=== PATIENT | female | born 1990 | race African-American/Black ===

== ENCOUNTER 2020-11-24 07:24 | Observation (INO) | payer BC ==
--- NOTE | 2020-11-23 23:17 | PCM.LDHP ---
L&D History of Present Illness - General Date of Service: 11/24/20 Admit Problem/Dx: Admission Diagnosis/Problem Admission Diagnosis/Problem 11/23/20 23:07 Ericka is a 30-year-old 2 para 0-0-1-0 -[place] female scheduled to be admitted on the a.m. of 11/24/2020 at 39-6/7 weeks gestational age with an OBED of 11/25/2020 for induction of labor. Source of Information: Patient History Limitations: Reports: No Limitations - History of Present Illness Introduction:: Ericka is a 30-year-old 2 para 0-0-1-0 -[place] female scheduled to be admitted on the a.m. of 11/24/2020 at 39-6/7 weeks gestational age with an OBED of 11/25/2020 for induction of labor. The process and procedure induction of labor, its risk, benefits and alternatives of care including allowing for natural onset of labor are all discussed with patient. She appears understand and wishes to proceed. Risk factors for include the following: History of multiple fibroids with last ultrasound done 11/22/2020 showing 3 largest fibroids at 7.5, 4.0 and 3.4 cm. At this time cervix is 2 cm dilated, 50% effaced, -3 station, soft, mid position. Baby in a cephalic presentation. 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 Her OBED of 11/26/2019 was determined by a certain last menstrual period started 02/19/2020. She is not using any control at the time of conception. LMP is relatively certain. She has cycles every 30 days. Menarche age 12. Patient has a previous miscarriage at 6weeks which occurred on 08/09/2014. She denies any STIs. She did have an abnormal Pap smear 2 years ago. She is presently sexually active course: Patient was first seen for this on 05/10/2020 at approximate 11 weeks gestational age. She has been seen on a very regular basis throughout the . Weight gain has been from 165 pounds to 270 pounds for a 42 pound increase. Her vital signs been stable and her fundal height growth has been appropriate or just a little ahead of average. Serial ultrasounds done and evaluation of growth have shown a normal rise in baby's growth with last ultrasound showing an estimated weight of 8 pounds 3 ounces (3717 g). Biophysical profiles done weekly have been within normal limits. Patient is group B strep negative. She declined genetic testing during this . She has a history of HPV on cervical evaluation. She plans to breast-feed. Patient is rubella immune. Tdap was given on 09/27/2020. Laboratory testing shows blood to be O+ with a negative antibody screen. Her first hemoglobin was 12.9 g/dL. Platelets were 332,000. She is rubella immune. RPR is nonreactive. Urine culture was negative. Hepatitis B surface antigen and HIV assays were negative. Chlamydia and gonorrhea assays both negative. Second trimester laboratory testing showed hemoglobin of 12.5 g/dL and platelets at 245,000. 1 hour GTT was normal at 104. Group B strep screen was negative. Allergies: None Medications: 1. vitamins 1 p.o. daily Past medical history: 1. Uterine fibroids 2. Miscarriage at 6 weeks gestational age. Past surgical history: Unremarkable Family history: Mother is alive but with hypertension. Twins are noted in her family. Father is alive with hypertension. Maternal grandmother is alive and healthy. Maternal grandfather is from causes unknown. Paternal grandfather is secondary to heart disease. Paternal grandmother is alive but cannot see very well. 2 brothers are healthy. Aunts, uncles and cousins are generally healthy. No anesthesia, bleeding, blood clotting problems or related concerns noted in the family. Social history: Patient is single. Significant other is Kaushik. 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 She does not use any significant muscle alcohol, drugs or tobacco. Review of systems: In general patient has no complaints. She does report occ asional contractions, is uncomfortable with but does report good activity. Skin: Negative Lungs: No infectious symptoms or shortness of breath Cardiovascular: No chest pain or exercise intolerance Breasts: No lumps, changes in size, pain, dimpling, discharge or axillary or supraclavicular concerns. Changes associated . Patient plans to breast-feed. GI: Negative : Body habitus changes associated with . Musculoskeletal: Negative Neurological: Negative In general the patient is well-developed, well-nourished, pleasant female of stated age in no acute distress. On last evaluation clinic blood pressure is 105/60. Weight was 207.2 pounds. Pregravid weight was 165 pounds. Height is 5 feet 3 inches. Prepregnancy body mass index was 30.8. Skin is warm dry without lesions. HEENT, neck and back within normal limits. Lungs are clear with good breath sounds in all lung leos. Cardiovascular exam shows regular and rhythm without murmurs. Breast exam done at time of first visit was unremarkable. Nipples bilaterally are everted. Patient plans to breast-feed. Abdomen is gravid with last fundal height at 40 cm. Baby in vertex pre sentation. Genital shows cervical dilated as outlined above at tight 2 cm, 50% effaced, -3 station, soft, cephalic presentation, mid position. Extremities and neurological exam are grossly within normal limits. Mild edema noted. H&P Review of Systems - Review of Systems: Review Of Systems: See Below L&D Exam - Exam Exam: See Below - Problem List (1) Uterine fibroids affecting SNOMED Code(s): 92264165 ICD Code: O34.10 - MATERNAL CARE FOR BENIGN TUMOR OF CORPUS UTERI, UNSP TRI; D25.9 - LEIOMYOMA OF UTERUS, UNSPECIFIED Status: Acute (2) 39 weeks gestation of SNOMED Code(s): 61187440 ICD Code: Z3A.39 - 39 WEEKS GESTATION OF Status: Acute (3) History of miscarriage SNOMED Code(s): 296328940 ICD Code: Z87.59 - PERSONAL HISTORY OF COMP OF PREG, CHLDBRTH AND THE PUERP Status: Acute Problem List Initiated/Reviewed/Updated: Yes Assessment/Plan Comment:: 1. Ericka is a 30-year-old 2 para 0-0-1-0 -[place] female scheduled to be admitted on the a.m. of 11/24/2020 at 39-6/7 weeks gestational age with an OBED of 11/25/2020 for induction of labor. 2. Risk factors include history of multiple fibroids as described 3. Patient desires to breast-feed. 4. Patient is open to epidural in labor but would like to start out with attempt at natural delivery 5. History of abnormal Pap smear related to HPV infection 6. Patient is rubella immune. 7. Patient received her Tdap during in September 2020. 8. Patient declined genetic testing 9. Patient is group B strep negative Plan: 1. Patient is to be admitted under Dr. Alva on 11/24/2020 for induction of labor. The type of induction to be determined by Dr. Dubois. Cervix appears to be compatible with possible Pitocin induction with eventual AROM augmentation. The procedure of induction of labor is discussed in detail with the patient. Risk of labor abnormalities which could be associated with uterine fibroids also discussed in detail. Patient appears to understand and is wishing to proceed with induction 2. Group B strep negativepatient does not need antibiotic prophylaxis at this time 3. Support breast-feeding incision 4. Epidural per patient desire 5. Admission labs consist of COVID-19, CBC, RPR per unit protocol.
[2020-11-24] MEDS ORDERED: Sodium Chloride 0.9% 10 ML Syringe FLUSH PRN (07:43)
[2020-11-24] MEDS ORDERED: Nalbuphine 10 MG/1 ML Vial IVPUSH PRN (07:43)
[2020-11-24] MEDS ORDERED: Oxytocin/Lactated Ringers 10 UNIT/1,000 ML BAG IV SCH (07:45)
[2020-11-24] MEDS ORDERED: Misoprostol 25 MCG (1/4 of 100 MCG) Tab VAG ONE (08:30)
[2020-11-24] MEDS: Lactated Ringers 1,000 ML IV SCH ×2 (10:00→14:00)
--- NOTE | 2020-11-24 19:53 | PCM.SN.2 ---
- Free Text/Narrative Note: 0745 Patient here for induction. Cervix 05/27/-4 Cytotec placed. FHT reassuring.
--- NOTE | 2020-11-24 19:54 | PCM.SN.2 ---
- Free Text/Narrative Note: 1030 Patient feeling cramping. Discussed plan of care. Likely initiate pitocin at 11 am. Contractions getting more uncomfortable.
--- NOTE | 2020-11-24 19:58 | PCM.SN.2 ---
- Free Text/Narrative Note: 1315 Two deep variable decelerations. Cervix unchanged. Patient feeling "mild cramps" Recommend AROM. Patient declines as she states she would like to consider discharge home and understands cannot if rupture of membranes. Asked patient if this is something that had been discussed with her as an option but she just does hope to have it as an option and to have option of having Dr Santana for delivery if things aren't progressing well now. Reinforced overall heart tones have been reassuring and too early to give up if not change but station is high. Will continue pitocin.
--- NOTE | 2020-11-24 20:02 | PCM.PNLD ---
Labor Progress Note - VS & Meds Vital Signs: Last Vital Signs Temp 36.7 C 11/24/20 07:43 Pulse 52 L 11/24/20 07:43 Resp 16 11/24/20 07:43 BP 117/65 11/24/20 07:43 Pulse Ox Active Medications: Current Medications Oxytocin/Lactated Ringer's (Pitocin In Lr 10 Units/1,000 Ml) 10 unit in 1,000 mls @ 12 mls/hr IV TITRATE RONALD; Protocol Last Titration: 11/24/20 18:20 Dose: 10 munits/min, 60 mls/hr Documented by: Lactated Ringer's (Ringers, Lactated) 1,000 mls @ 100 mls/hr IV ASDIRECTED RONALD Last Admin: 11/24/20 14:00 Dose: 100 mls/hr Documented by: Nalbuphine HCl (Nalbuphine 10 Mg/1 Ml Vial) 10 mg IVPUSH Q2H PRN PRN Reason: Pain Sodium Chloride (Sodium Chloride 0.9% 10 Ml Syringe) 10 ml FLUSH ASDIRECTED PRN PRN Reason: Keep Vein Open Discontinued Medications Misoprostol (Misoprostol 25 Mcg (1/4 Of 100 Mcg) Tab) 50 mcg VAG ONETIME ONE Stop: 11/24/20 08:31 Last Admin: 11/24/20 08:35 Dose: 50 mcg Documented by: - Uterine Contractions Uterine Monitoring Mode: External [place] Contraction Intensity: Moderate Uterine Resting Tone: Soft - Monitoring Heart Rate (FHR) Baseline: 145 Heart Rate (FHR) Variability: Moderate (6-25 bpm) Accelerations: Present, 15x15 Decelerations: Late (occasional subtle lates) - Vaginal Exam Dilation (cm): 2 Effacement (Percent): 20 Station: -3 Cervical Position: Midposition - Labor Progress (Free Text) Labor Progress: No significant progress. Some late decelerations. Discussed with patient that while seeing these at 2 cm with low dose (4) of pitocin I do have concerns that we will not be able to get contractions strong enough to achieve vaginal delivery given that although FHT are overall reassuring there are some lates this early in the labor course. Recommend AROM to help facilitate labor. Patient and again refuse. Would like to watch further. Discussed situations that would necessitate more emergent . They stress they do not want a unless it would be "last resort life or " Would like to continue to labor.
--- NOTE | 2020-11-24 20:10 | PCM.SN.2 ---
- Free Text/Narrative Note: 2100 Overall reassuring heart tones. No cervical change 10 mu/min pitocin. Regular painful contractions. Offered AROM. Discussed given minimal change with contractions and station significantly high feel AROM would help head become more applied and increase likelihood of delivery. Patient again declines. They have more questions about discharge and think they would prefer to let her body labor on it's own. And would like to have pitocin turned off and be discharged. They are very fearful of and it seems feel that induction will increase the likelihood. I discussed again that contractions whether from pitocin or natural have same impact on heart rate. FHT are reassuring and there have been accelerations so we do have a reassuring contraction stress test. Discussed that I don't think a day or two will make a difference on her likelihood of vaginal delivery. they asked that we leave the room and upon our return they would like pitocin off and discharge home. Strong return precautions reinforced. Discussed that there have been periods of time the monitoring makes me concerned and I would strongly prefer they continue induction now rather than go home. They voice understanding but would still like discharge.
== END 2020-11-24 21:40 | disposition home or self-care (01) ==
LOC: JD.OB 07:24
PROVIDERS: ADMIT Obstetrics & Gynecology; ATTEND Obstetrics & Gynecology
DX: O80 Encounter for full-term uncomplicated delivery (principal); O34.13 Maternal care for benign tumor of corpus uteri, third trimester; Z3A.39 39 weeks gestation of pregnancy; Z20.822 Contact with and (suspected) exposure to COVID-19; Z87.59 Personal history of other complications of pregnancy, childbirth and the puerperium
CPT/HCPCS: 36415; 59025; 85025; 86592; 86850; 86900; 86901; 87635; 96365; 96366; A9270; G0378; J2590; J7120; U0002

== ENCOUNTER 2020-11-25 11:28 | Inpatient (IN) | payer BC ==
[2020-11-25] MEDS ORDERED: Sodium Chloride 0.9% 10 ML Syringe FLUSH PRN (12:29)
[2020-11-25] MEDS ORDERED: Ondansetron 4 MG/2 ML SDV IVPUSH PRN (12:29)
[2020-11-25] MEDS ORDERED: Nalbuphine 10 MG/1 ML Vial IVPUSH PRN (12:29)
[2020-11-25] MEDS ORDERED: Oxytocin/Lactated Ringers 10 UNIT/1,000 ML BAG IV SCH ×2 (12:30)
[2020-11-25] MEDS ORDERED: Bupivacaine 0.25% 10 ML SDV ONE (14:00)
[2020-11-25] MEDS: Lactated Ringers 1,000 ML IV SCH ×4 (15:00→22:20)
--- NOTE | 2020-11-25 15:00 | PCM.SN.2 ---
- Free Text/Narrative Note: 1430 in room for IV start. One attempt per ultrasound 20 ga. good flush good blood return. Left upper arm. Out of room at 1450.
--- NOTE | 2020-11-25 19:47 | PCM.PNLD ---
Labor Progress Note - VS & Meds Vital Signs: Last Vital Signs Temp 36.8 C 11/25/20 12:29 Pulse 92 11/25/20 12:29 Resp BP 131/78 11/25/20 12:29 Pulse Ox 99 11/25/20 12:29 Active Medications: Current Medications Oxytocin/Lactated Ringer's (Pitocin In Lr 10 Units/1,000 Ml) 10 unit in 1,000 mls @ 12 mls/hr IV TITRATE RONALD; Protocol Last Admin: 11/25/20 18:20 Dose: 2 munits/min, 12 mls/hr Documented by: Oxytocin/Lactated Ringer's (Pitocin In Lr 10 Units/1,000 Ml) 10 unit in 1,000 mls @ 500 mls/hr IV .CONTINUOUS RONALD Lactated Ringer's (Ringers, Lactated) 1,000 mls @ 100 mls/hr IV ASDIRECTED RONALD Last Admin: 11/25/20 18:12 Dose: 100 mls/hr Documented by: Nalbuphine HCl (Nalbuphine 10 Mg/1 Ml Vial) 10 mg IVPUSH Q2H PRN PRN Reason: Pain Ondansetron HCl (Ondansetron 4 Mg/2 Ml Sdv) 4 mg IVPUSH Q4H PRN PRN Reason: Nausea/Vomiting Sodium Chloride (Sodium Chloride 0.9% 10 Ml Syringe) 10 ml FLUSH ASDIRECTED PRN PRN Reason: Keep Vein Open - Uterine Contractions Contraction Intensity: Moderate to Strong - Monitoring Heart Rate (FHR) Variability: Moderate (6-25 bpm) Accelerations: Present, 15x15 Decelerations: None Strip Review: Category I - Vaginal Exam Dilation (cm): 4 Effacement (Percent): 80 Station: -2 Cervical Position: Midposition - Labor Progress (Free Text) Labor Progress: In tub. Doing well. Desires epidural "soon" Otherwise no complaints. Continued leaking of fluid. On 2 mu/min of pitocin now.
[2020-11-25] MEDS ORDERED: Bupivacaine/fentaNYL/NS 100 ML Bag EPIDUR PRN (20:42)
[2020-11-25] MEDS ORDERED: ePHEDrine 50 MG/ML SDV IVPUSH PRN (20:42)
[2020-11-25] MEDS ORDERED: fentaNYL 100 MCG/2 ML SDV EPIDUR PRN (20:42)
[2020-11-25] MEDS ORDERED: diphenhydrAMINE 50 MG/ML SDV IVPUSH PRN (20:42)
--- NOTE | 2020-11-25 21:12 | PCM.PREANE ---
Preanesthetic Assessment - Procedure Proposed Procedure: epidural - Anesthesia/Transfusion/Family Hx Anesthesia History: No Prior Anesthesia Family History of Anesthesia Reaction: No Transfusion History: No Prior Transfusion(s) - Review of Systems General: Fatigue, Malaise Pulmonary: No Symptoms Cardiovascular: No Symptoms Gastrointestinal: Abdominal Pain (labor) Neurological: No Symptoms Other: Reports: None - Physical Assessment Vital Signs: Last Vital Signs Temp 36.8 C 11/25/20 12:29 Pulse 92 11/25/20 12:29 Resp BP 131/78 11/25/20 12:29 Pulse Ox 99 11/25/20 12:29 Height: 1.63 m Weight: 93.894 kg ASA Class: 2 Mental Status: Alert & Oriented x3 Airway Class: Mallampati = 2 Dentition: Reports: Normal Dentition Thyro-Mental Finger Breadths: 3 Mouth Opening Finger Breadths: 3 ROM/Head Extension: Full Lungs: Clear to Auscultation, Normal Respiratory Effort Cardiovascular: Regular Rate, Regular Rhythm - Allergies Allergies/Adverse Reactions: Allergies Allergy/AdvReac Type Severity Reaction Status Date / Time No Known Allergies Allergy Verified 11/24/20 07:41 - Anesthesia Plan Pre-Op Medication Ordered: None - Acknowledgements Anesthesia Type Planned: Epidural Pt an Appropriate Candidate for the Planned Anesthesia: Yes Alternatives and Risks of Anesthesia Discussed w Pt/Guardian: Yes Pt/Guardian Understands and Agrees with Anesthesia Plan: Yes PreAnesthesia Questionnaire Gastrointestinal History: Reports: GERD 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, - Infectious Disease History Infectious Disease History: Reports: Human Papilloma Virus (HPV) - Past Surgical History Female Surgical History: Reports: None - SUBSTANCE USE Tobacco Use Status *Q: Never Tobacco User Second Hand Smoke Exposure: No Recreational Drug Use History: No - HOME MEDS Home Medications: Home Meds Vits #93/Iron Fum/FA [ Formula Tablet] 1 tab PO DAILY 11/24/20 [History] - CURRENT (IN HOUSE) MEDS Current Meds: Current Medications Diphenhydramine HCl (Diphenhydramine 50 Mg/Ml Sdv) 25 mg IVPUSH Q6H PRN PRN Reason: pruritis Ephedrine Sulfate (Ephedrine 50 Mg/Ml Sdv) 5 mg IVPUSH ASDIRECTED PRN PRN Reason: Hypotension Fentanyl (Fentanyl 100 Mcg/2 Ml Sdv) 100 mcg EPIDUR Q3H PRN PRN Reason: Pain Last Admin: 11/25/20 20:49 Dose: 100 mcg Documented by: Fentanyl/Bupivacaine HCl (Bupivacaine/Fentanyl/Ns 100 Ml Bag) 100 ml EPIDUR ASDIRECTED PRN PRN Reason: Pain Last Admin: 11/25/20 20:51 Dose: 100 ml Documented by: Oxytocin/Lactated Ringer's (Pitocin In Lr 10 Units/1,000 Ml) 10 unit in 1,000 mls @ 12 mls/hr IV TITRATE RONALD; Protocol Last Titration: 11/25/20 20:35 Dose: 0 munits/min, 0 mls/hr Documented by: Oxytocin/Lactated Ringer's (Pitocin In Lr 10 Units/1,000 Ml) 10 unit in 1,000 mls @ 500 mls/hr IV .CONTINUOUS RONALD Lactated Ringer's (Ringers, Lactated) 1,000 mls @ 100 mls/hr IV ASDIRECTED RONALD Last Admin: 11/25/20 18:12 Dose: 100 mls/hr Documented by: Nalbuphine HCl (Nalbuphine 10 Mg/1 Ml Vial) 10 mg IVPUSH Q2H PRN PRN Reason: Pain Ondansetron HCl (Ondansetron 4 Mg/2 Ml Sdv) 4 mg IVPUSH Q4H PRN PRN Reason: Nausea/Vomiting Sodium Chloride (Sodium Chloride 0.9% 10 Ml Syringe) 10 ml FLUSH ASDIRECTED PRN PRN Reason: Keep Vein Open
[2020-11-25] MEDS ORDERED: Citric Acid/Sodium Citrate Solution 30 ML Cup PO ONE (22:30)
[2020-11-25] MEDS ORDERED: Metoclopramide 10 MG/2 ML SDV IVPUSH ONE (22:30)
--- NOTE | 2020-11-25 22:32 | PCM.PNLD ---
Labor Progress Note - VS & Meds Vital Signs: Last Vital Signs Temp 36.8 C 11/25/20 12:29 Pulse 92 11/25/20 12:29 Resp BP 131/78 11/25/20 12:29 Pulse Ox 99 11/25/20 12:29 Active Medications: Current Medications Diphenhydramine HCl (Diphenhydramine 50 Mg/Ml Sdv) 25 mg IVPUSH Q6H PRN PRN Reason: pruritis Ephedrine Sulfate (Ephedrine 50 Mg/Ml Sdv) 5 mg IVPUSH ASDIRECTED PRN PRN Reason: Hypotension Last Admin: 11/25/20 21:27 Dose: 5 mg Documented by: Fentanyl (Fentanyl 100 Mcg/2 Ml Sdv) 100 mcg EPIDUR Q3H PRN PRN Reason: Pain Last Admin: 11/25/20 20:49 Dose: 100 mcg Documented by: Fentanyl/Bupivacaine HCl (Bupivacaine/Fentanyl/Ns 100 Ml Bag) 100 ml EPIDUR ASDIRECTED PRN PRN Reason: Pain Last Admin: 11/25/20 20:51 Dose: 100 ml Documented by: Oxytocin/Lactated Ringer's (Pitocin In Lr 10 Units/1,000 Ml) 10 unit in 1,000 mls @ 12 mls/hr IV TITRATE RONALD; Protocol Last Titration: 11/25/20 20:35 Dose: 0 munits/min, 0 mls/hr Documented by: Oxytocin/Lactated Ringer's (Pitocin In Lr 10 Units/1,000 Ml) 10 unit in 1,000 mls @ 500 mls/hr IV .CONTINUOUS RONALD Lactated Ringer's (Ringers, Lactated) 1,000 mls @ 100 mls/hr IV ASDIRECTED RONALD Last Infusion: 11/25/20 20:27 Dose: 999 mls/hr Documented by: Nalbuphine HCl (Nalbuphine 10 Mg/1 Ml Vial) 10 mg IVPUSH Q2H PRN PRN Reason: Pain Ondansetron HCl (Ondansetron 4 Mg/2 Ml Sdv) 4 mg IVPUSH Q4H PRN PRN Reason: Nausea/Vomiting Sodium Chloride (Sodium Chloride 0.9% 10 Ml Syringe) 10 ml FLUSH ASDIRECTED PRN PRN Reason: Keep Vein Open - Uterine Contractions Contraction Intensity: Moderate to Strong - Monitoring Heart Rate (FHR) Variability: Moderate (6-25 bpm) Accelerations: Present, 15x15 Decelerations: Late, Variable Strip Review: Category II - Vaginal Exam Dilation (cm): 4 Effacement (Percent): 80 Station: -3 Cervical Position: Midposition - Labor Progress (Free Text) Labor Progress: Post epidural significant late and deep variable decelerations. Reassuring with pitocin off and without contractions. Discussed with patient and that given she is only 4 cm and there are significant decelerations with contractions that I would recommend as the monitoring is not reassuring when she has contractions and contractions are necessary to achieve vaginal delivery. She voices that she understands this. States she would just like the pitocin off and to wait and see if she can still deliver. Again stressed that delivery is not possible without contractions and with contractions there heart rate patterns that are non-reassuring. They voice understanding and would like pitocin off to discuss. After discussion they would proceed with section. Risks, benefits and alternatives discussed and she voices understanding and wishes to proceed.
[2020-11-25] MEDS ORDERED: Metoclopramide 10 MG/2 ML SDV ONE (22:36)
[2020-11-25] MEDS ORDERED: Citric Acid/Sodium Citrate Solution 30 ML Cup ONE (22:36)
--- NOTE | 2020-11-25 22:38 | PCM.LDHP ---
L&D History of Present Illness - General Date of Service: 11/25/20 Admit Problem/Dx: Patient Status Order with Admit Dx/Problem 11/25/20 12:29 Patient Status [ADT] Routine Admission Diagnosis/Problem Admission Diagnosis/Problem - History of Present Illness Introduction:: 30 year old at 40w here for SROM. Clear fluid at 5 am. Had been admitted for induction yesterday and after minimal change from 7 am to 7 pm desired discharge to home. Irregular contractions over night and SROM. PNC with Dr. Santana as detailed in H&P yesterday as well. 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, - Infectious Disease History Infectious Disease History: Reports: Human Papilloma Virus (HPV) - Past Surgical History Female Surgical History: Reports: None Social & Family History - Family History Family Medical History: No Pertinent Family History - Tobacco Use Tobacco Use Status *Q: Never Tobacco User Second Hand Smoke Exposure: No - Recreational Drug Use Recreational Drug Use: No Drug Use in Last 12 Months: No H&P Review of Systems - Review of Systems: Review Of Systems: See Below General: Reports: No Symptoms HEENT: Reports: No Symptoms Pulmonary: Reports: No Symptoms Cardiovascular: Reports: No Symptoms Gastrointestinal: Reports: No Symptoms Genitourinary: Reports: No Symptoms Musculoskeletal: Reports: No Symptoms Skin: Reports: No Symptoms Psychiatric: Reports: No Symptoms Neurological: Reports: No Symptoms Hematologic/Lymphatic: Reports: No Symptoms Immunologic: Reports: No Symptoms L&D Exam - Exam Exam: See Below - Vital Signs Vital Signs: Last Vital Signs Temp 36.8 C 11/25/20 12:29 Pulse 92 11/25/20 12:29 Resp BP 131/78 11/25/20 12:29 Pulse Ox 99 11/25/20 12:29 Weight: 93.894 kg - OB Specific Contraction Intensity: Moderate to Strong Heart Rate (FHR) Variability: Moderate (6-25 bpm) - Cardoso Score Cardoso Score Cervix Position: Posterior Cardoso Score Consistency: Firm Cardoso Score Effacement: 31-50% Cardoso Score Dilation: 1-2 cm Cardoso Score Infant's Station: -3 Cardoso Score Total: 2 - Exam General: Alert, Oriented HEENT: PERRLA, Conjunctiva Clear, EACs Clear, EOMI, Hearing Intact, Mucosa Moist & [place], Nares Patent, Normal Nasal Septum, Posterior Pharynx Clear, TMs Clear Neck: Supple, Trachea Midline GI/Abdominal Exam: Normal Bowel Sounds, Soft, Non-Tender, No Organomegaly, No Distention, No Abnormal Bruit, No Mass, Pelvis Stable Rectal Exam: Normal Exam, Normal Rectal Tone Genitourinary: Normal external exam Back Exam: Normal Inspection, Full Range of Motion Extremities: Normal Inspection, Normal Range of Motion, Non-Tender, No Pedal Edema, Normal Capillary Refill Skin: Warm, Dry, Intact Neurological: Cranial Nerves Intact, Reflexes Equal Bilateral Psychiatric: Alert, Normal Affect, Normal Mood Problem List Initiated/Reviewed/Updated: Yes Orders Last 24hrs: Active Orders 24 hr Category Date Time Status Patient Status [ADT] Routine ADT 11/25/20 12:29 Active Activity as Tolerated [RC] PFP Care 11/25/20 12:29 Active Communication Order [RC] ASDIRECTED Care 11/25/20 12:29 Active Communication Order [RC] ASDIRECTED Care 11/25/20 20:43 Active Cooling Warming Measures [RC] ASDIRECTED Care 11/25/20 20:43 Active Notify Provider [RC] ASDIRECTED Care 11/25/20 20:42 Active Notify Provider [RC] ASDIRECTED Care 11/25/20 20:43 Active Notify Provider [RC] PFP Care 11/25/20 12:29 Active Notify Provider [RC] PRN Care 11/25/20 12:29 Active Oxygen Therapy [RC] ASDIRECTED Care 11/25/20 20:42 Active Peripheral IV Care [RC] . DIRECTED Care 11/25/20 12:29 Active Pulse Oximetry [RC] ASDIRECTED Care 11/25/20 20:43 Active Vital Signs [RC] PER UNIT ROUTINE Care 11/25/20 12:29 Active Vital Signs [RC] Q1H Care 11/25/20 20:42 Active Regular Diet [DIET] Diet 11/25/20 Lunch Active HEP C VIRUS AB [REF] Stat Lab 11/25/20 12:39 Received Bupivacaine/fentaNYL/NS [fentaNYL/Bupivacaine/NS 2 MCG- Med 11/25/20 20:42 Active 0.125% 100 ML] 100 ml EPIDUR ASDIRECTED PRN Lactated Ringers [Ringers, Lactated] 1,000 ml Med 11/25/20 12:30 Active IV ASDIRECTED Nalbuphine [Nubain] Med 11/25/20 12:29 Active 10 mg IVPUSH Q2H PRN Ondansetron [Zofran] Med 11/25/20 12:29 Active 4 mg IVPUSH Q4H PRN Oxytocin/Lactated Ringers [Pitocin in LR 10 Units/1,000 Med 11/25/20 12:30 Active ML] 10 unit in 1,000 ml IV .CONTINUOUS Oxytocin/Lactated Ringers [Pitocin in LR 10 Units/1,000 Med 11/25/20 12:30 Active ML] 10 unit in 1,000 ml IV TITRATE Sodium Chloride 0.9% [Saline Flush] Med 11/25/20 12:29 Active 10 ml FLUSH ASDIRECTED PRN diphenhydrAMINE [Benadryl] Med 11/25/20 20:42 Active 25 mg IVPUSH Q6H PRN ePHEDrine [ePHEDrine sulfate] Med 11/25/20 20:42 Active 5 mg IVPUSH ASDIRECTED PRN fentaNYL [Sublimaze] Med 11/25/20 20:42 Active 100 mcg EPIDUR Q3H PRN Electronic Heart Tones Ext w TOCO [WOMSER] Oth 11/25/20 12:29 Ordered Routine Electronic Heart Tones Internal [WOMSER] Per Unit Oth 11/25/20 12:29 Ordered Routine Peripheral IV Insertion Adult [OM.PC] Routine Oth 11/25/20 12:29 Ordered Resuscitation Status Routine Resus Stat 11/25/20 12:29 Ordered Medication Orders Diphenhydramine HCl (Diphenhydramine 50 Mg/Ml Sdv) 25 mg IVPUSH Q6H PRN PRN Reason: pruritis Ephedrine Sulfate (Ephedrine 50 Mg/Ml Sdv) 5 mg IVPUSH ASDIRECTED PRN PRN Reason: Hypotension Last Admin: 11/25/20 21:27 Dose: 5 mg Documented by: KIRT Fentanyl (Fentanyl 100 Mcg/2 Ml Sdv) 100 mcg EPIDUR Q3H PRN PRN Reason: Pain Last Admin: 11/25/20 20:49 Dose: 100 mcg Documented by: KIRT Fentanyl/Bupivacaine HCl (Bupivacaine/Fentanyl/Ns 100 Ml Bag) 100 ml EPIDUR ASDIRECTED PRN PRN Reason: Pain Last Admin: 11/25/20 20:51 Dose: 100 ml Documented by: KIRT Oxytocin/Lactated Ringer's (Pitocin In Lr 10 Units/1,000 Ml) 10 unit in 1,000 mls @ 12 mls/hr IV TITRATE RONALD; Protocol Last Titration: 11/25/20 20:35 Dose: 0 munits/min, 0 mls/hr Documented by: Admin: 11/25/20 18:20 Dose: 2 munits/min, 12 mls/hr Documented by: PENG Oxytocin/Lactated Ringer's (Pitocin In Lr 10 Units/1,000 Ml) 10 unit in 1,000 mls @ 500 mls/hr IV .CONTINUOUS RONALD Lactated Ringer's (Ringers, Lactated) 1,000 mls @ 100 mls/hr IV ASDIRECTED RONALD Last Infusion: 11/25/20 20:27 Dose: 999 mls/hr Documented by: Admin: 11/25/20 18:12 Dose: 100 mls/hr Documented by: Infusion: 11/25/20 18:12 Dose: 100 mls/hr Documented by: Admin: 11/25/20 15:00 Dose: 100 mls/hr Documented by: PENG Nalbuphine HCl (Nalbuphine 10 Mg/1 Ml Vial) 10 mg IVPUSH Q2H PRN PRN Reason: Pain Ondansetron HCl (Ondansetron 4 Mg/2 Ml Sdv) 4 mg IVPUSH Q4H PRN PRN Reason: Nausea/Vomiting Sodium Chloride (Sodium Chloride 0.9% 10 Ml Syringe) 10 ml FLUSH ASDIRECTED PRN PRN Reason: Keep Vein Open Assessment/Plan Comment:: 30 year old here with SROM. Discussed if no cervical change after 2-3 hours would again recommend pitocin. Patient voices understanding.
[2020-11-25] MEDS ORDERED: Morphine PF 10 MG/10 ML SDV ONE (22:47)
[2020-11-25] MEDS ORDERED: ceFAZolin 1 GM Vial ONE (22:47)
[2020-11-25] MEDS ORDERED: Phenylephrine 1% 10 MG/ML SDV ONE (22:47)
[2020-11-25] MEDS ORDERED: Bupivacaine 0.5% 30 ML SDV ONE (22:50)
[2020-11-25] MEDS ORDERED: Lidocaine 2% with EPINEPHrine 1:200,000 20 ML SDV ONE (22:50)
[2020-11-25] MEDS ORDERED: Ketorolac 30 MG/ML SDV ONE (23:33)
--- NOTE | 2020-11-26 00:09 | PCM.POSTAN ---
POST ANESTHESIA ASSESSMENT - MENTAL STATUS Mental Status: Alert, Oriented - VITAL SIGNS Vital Signs: Last Vital Signs Temp 36.8 C 11/25/20 12:29 Pulse 92 11/25/20 12:29 Resp BP 131/78 11/25/20 12:29 Pulse Ox 99 11/25/20 12:29 - RESPIRATORY Respiratory Status: Respiratory Rate WNL, Airway Patent, O2 Saturation Stable - CARDIOVASCULAR CV Status: Pulse Rate WNL, Blood Pressure Stable - GASTROINTESTINAL GI Status: No Symptoms - PAIN Pain Score: 0 - POST OP HYDRATION Hydration Status: Adequate & Stable - OBSERVATIONS Free Text/Narrative:: no anesthesia complications noted
--- NOTE | 2020-11-26 00:16 | PCM.OPNOTE ---
- General Post-Op/Procedure Note Date of Surgery/Procedure: 11/26/20 Operative Procedure(s): primary Findings: viable female, weight 3560g, 8/9 apgars at 2324. Pre Op Diagnosis: non reassuring heart tones. Post-Op Diagnosis: Same Anesthesia Technique: Spinal Primary Surgeon: Hanna Alva Anesthesia Provider: Armond Koch Administrative Secretary: Renea Massey Fluid Replacement, Intraop: 1,500 Output, Urine Amount: 100 EBL in mLs: 1,000 Complications: None Condition: Good Free Text/Narrative:: he patient was taken to the operating room where epidural anesthesia was dosed to surgical levels without difficulty. The patient was prepped and draped in the usual sterile fashion in the dorsal supine position with a leftward tilt. A Pfannenstiel skin incision was made with the scalpel and carried through to the underlying layer of fascia. The fascia was incised in the midline and extended laterally using Nguyen scissors. Dylan clamps were used to elevate the superior aspect of the fascial incision, which was elevated, and the underlying rectus muscles were dissected off bluntly and using Nguyen scissors. Attention was then turned to the inferior aspect of the fascial incision, which in similar fashion was grasped with Dylan clamps, elevated, and the underlying rectus muscles were dissected off bluntly and using the nguyen. The rectus muscles were dissected in the midline. The peritoneum was entered bluntly; this incision was extended superiorly and inferiorly with good visualization of the bladder. The bladder blade was inserted. The vesicouterine peritoneum was identified and entered sharply using Metzenbaum scissors. This incision was extended laterally and the bladder flap was created digitally. The bladder blade was reinserted. The lower uterine segment was incised in a transverse fashion using the scalpel and with digital traction. Clear fluid was noted. The was subsequently delivered by flexing the head to the incision. Body and shoulders followed without difficulty. The cord was clamped and cut. The infant was subsequently handed to the awaiting metal cleaner whose presence had been requested.. The placenta was delivered spontaneously intact with a three-vessel cord noted. The uterus was exteriorized and cleared of all clots and debris. The uterine incision was repaired in 2 layers using 0 monocryl. Hemostasis was visualized. Hemostasis was visualized bilaterally. The uterus was returned to the abdomen. The uterine incision was reexamined and it was noted to be hemostatic. The pelvis was copiously irrigated. The fascia was closed with 1 PDS suture, and the skin was closed with 3-0 monocryl. Sponge, lap, and instrument counts were correct x2. The patient was stable at the completion of the procedure and was subsequently transferred to the recovery room in stable condition.
[2020-11-26] MEDS ORDERED: Ibuprofen 600 MG Tab PO PRN (00:32)
[2020-11-26] MEDS ORDERED: Dextrose 5%-Lactated Ringers 1,000 ML IV SCH (00:32)
[2020-11-26] MEDS ORDERED: diphenhydrAMINE 50 MG/ML SDV IVPUSH PRN (00:32)
[2020-11-26] MEDS ORDERED: ePHEDrine 50 MG/ML SDV IVPUSH PRN (00:32)
[2020-11-26] MEDS ORDERED: Acetaminophen/oxyCODONE 325-5 MG Tab PO PRN ×2 (00:32)
[2020-11-26] MEDS ORDERED: Naloxone 0.4 MG/ML SDV IVPUSH PRN (00:32)
[2020-11-26] MEDS: Ketorolac 30 MG/ML SDV IVPUSH PRN ×3 (07:11→19:05)
--- NOTE | 2020-11-26 08:55 | PCM.PNPP ---
- General Info Date of Service: 11/26/20 Functional Status: Reports: Pain Controlled - Review of Systems General: Reports: No Symptoms HEENT: Reports: No Symptoms Pulmonary: Reports: No Symptoms Cardiovascular: Reports: No Symptoms Gastrointestinal: Reports: No Symptoms Genitourinary: Reports: No Symptoms Musculoskeletal: Reports: No Symptoms Skin: Reports: No Symptoms Neurological: Reports: No Symptoms Psychiatric: Reports: No Symptoms - Patient Data Vital Signs - Most Recent: Last Vital Signs Temp 36.7 C 11/26/20 07:26 Pulse 88 11/26/20 07:26 Resp 14 11/26/20 07:26 BP 114/95 H 11/26/20 07:26 Pulse Ox 100 11/26/20 07:26 Weight - Most Recent: 93.894 kg I&O - Last 24 Hours: Intake & Output 11/25/20 11/26/20 11/26/20 22:59 06:59 14:59 Intake Total 27 5400 1000 Output Total 3150 300 Balance 27 2250 700 Lab Results - Last 24 Hours: Laboratory Results - last 24 hr 11/26/20 Range/Units 07:20 WBC 14.52 H (3.98-10.04) K/mm3 RBC 3.40 L (3.98-5.22) M/mm3 Hgb 10.8 L D (11.2-15.7) gm/dl Hct 32.1 L (34.1-44.9) % MCV 94.4 (79.4-94.8) fl MCH 31.8 (25.6-32.2) pg MCHC 33.6 (32.2-35.5) g/dl RDW Std Deviation 44.5 (36.4-46.3) fL Plt Count 218 (182-369) K/mm3 MPV 10.2 (9.4-12.3) fl Neut % (Auto) 76.4 H (34.0-71.1) % Lymph % (Auto) 15.9 L (19.3-51.7) % [place] % (Auto) 7.2 (4.7-12.5) % Eos % (Auto) 0.2 L (0.7-5.8) Baso % (Auto) 0.1 (0.1-1.2) % Neut # (Auto) 11.09 H (1.56-6.13) K/mm3 Lymph # (Auto) 2.31 (1.18-3.74) K/mm3 [place] # (Auto) 1.05 H (0.24-0.36) K/mm3 Eos # (Auto) 0.03 L (0.04-0.36) K/mm3 Baso # (Auto) 0.01 (0.01-0.08) K/mm3 Med Orders - Current: Current Medications Diphenhydramine HCl (Diphenhydramine 50 Mg/Ml Sdv) 25 mg IVPUSH Q6H PRN PRN Reason: Itching or Nausea Ephedrine Sulfate (Ephedrine 50 Mg/Ml Sdv) 5 mg IVPUSH SEECOMMENT PRN PRN Reason: Other Ibuprofen (Ibuprofen 600 Mg Tab) 600 mg PO Q6H PRN PRN Reason: mild pain or fever Ketorolac Tromethamine (Ketorolac 30 Mg/Ml Sdv) 30 mg IVPUSH Q6H PRN PRN Reason: Pain Last Admin: 11/26/20 07:11 Dose: 30 mg Documented by: Naloxone HCl (Naloxone 0.4 Mg/Ml Sdv) 0.1 mg IVPUSH SEECOMMENT PRN PRN Reason: Respiratory Depression Oxycodone/Acetaminophen (Acetaminophen/Oxycodone 325-5 Mg Tab) 1 tab PO Q4H PRN PRN Reason: Pain (moderate 4-6) Oxycodone/Acetaminophen (Acetaminophen/Oxycodone 325-5 Mg Tab) 2 tab PO Q4H PRN PRN Reason: Pain (severe 7-10) Discontinued Medications Bupivacaine HCl (Bupivacaine 0.5% 30 Ml Sdv) Confirm Administered Dose 30 ml .ROUTE .STK-MED ONE Stop: 11/25/20 22:51 Last Admin: 11/25/20 23:24 Dose: 15 ml Documented by: Cefazolin Sodium (Cefazolin 1 Gm Vial) Confirm Administered Dose 2 gm .ROUTE .STK-MED ONE Stop: 11/25/20 22:48 Citric Acid/Sodium Citrate (Citric Acid/Sodium Citrate Solution 30 Ml Cup) Confirm Administered Dose 30 ml .ROUTE .STK-MED ONE Stop: 11/25/20 22:37 Last Admin: 11/25/20 22:48 Dose: 30 ml Documented by: Citric Acid/Sodium Citrate (Citric Acid/Sodium Citrate Solution 30 Ml Cup) 30 ml PO ONETIME ONE Stop: 11/25/20 22:31 Last Admin: 11/26/20 06:00 Dose: Not Given Documented by: Diphenhydramine HCl (Diphenhydramine 50 Mg/Ml Sdv) 25 mg IVPUSH Q6H PRN PRN Reason: pruritis Ephedrine Sulfate (Ephedrine 50 Mg/Ml Sdv) 5 mg IVPUSH ASDIRECTED PRN PRN Reason: Hypotension Last Admin: 11/25/20 21:27 Dose: 5 mg Documented by: Fentanyl (Fentanyl 100 Mcg/2 Ml Sdv) 100 mcg EPIDUR Q3H PRN PRN Reason: Pain Last Admin: 11/25/20 20:49 Dose: 100 mcg Documented by: Fentanyl/Bupivacaine HCl (Bupivacaine/Fentanyl/Ns 100 Ml Bag) 100 ml EPIDUR ASDIRECTED PRN PRN Reason: Pain Last Admin: 11/25/20 20:51 Dose: 100 ml Documented by: Oxytocin/Lactated Ringer's (Pitocin In Lr 10 Units/1,000 Ml) 10 unit in 1,000 mls @ 12 mls/hr IV TITRATE RONALD; Protocol Last Titration: 11/25/20 20:35 Dose: 0 munits/min, 0 mls/hr Documented by: Oxytocin/Lactated Ringer's (Pitocin In Lr 10 Units/1,000 Ml) 10 unit in 1,000 mls @ 500 mls/hr IV .CONTINUOUS RONALD Lactated Ringer's (Ringers, Lactated) 1,000 mls @ 100 mls/hr IV ASDIRECTED RONALD Last Admin: 11/25/20 22:20 Dose: 100 mls/hr Documented by: Dextrose/Lactated Ringer's (Dextrose 5%-Lactated Ringers) 1,000 mls @ 125 mls/hr IV ASDIRECTED RONALD Stop: 11/26/20 08:31 Last Admin: 11/26/20 01:20 Dose: 125 mls/hr Documented by: Ketorolac Tromethamine (Ketorolac 30 Mg/Ml Sdv) Confirm Administered Dose 30 mg .ROUTE .STK-MED ONE Stop: 11/25/20 23:34 Lidocaine/Epinephrine (Lidocaine 2% With Epinephrine 1:200,000 20 Ml Sdv) Confirm Administered Dose 20 ml .ROUTE .STK-MED ONE Stop: 11/25/20 22:51 Metoclopramide HCl (Metoclopramide 10 Mg/2 Ml Sdv) Confirm Administered Dose 10 mg .ROUTE .STK-MED ONE Stop: 11/25/20 22:37 Last Admin: 11/25/20 22:51 Dose: 10 mg Documented by: Metoclopramide HCl (Metoclopramide 10 Mg/2 Ml Sdv) 10 mg IVPUSH ONETIME ONE Stop: 11/25/20 22:31 Last Admin: 11/26/20 06:01 Dose: Not Given Documented by: Morphine Sulfate (Morphine Pf 10 Mg/10 Ml Sdv) Confirm Administered Dose 10 mg .ROUTE .STK-MED ONE Stop: 11/25/20 22:48 Nalbuphine HCl (Nalbuphine 10 Mg/1 Ml Vial) 10 mg IVPUSH Q2H PRN PRN Reason: Pain Ondansetron HCl (Ondansetron 4 Mg/2 Ml Sdv) 4 mg IVPUSH Q4H PRN PRN Reason: Nausea/Vomiting Phenylephrine HCl (Phenylephrine 1% 10 Mg/Ml Sdv) Confirm Administered Dose 10 mg .ROUTE .STK-MED ONE Stop: 11/25/20 22:48 Sodium Chloride (Sodium Chloride 0.9% 10 Ml Syringe) 10 ml FLUSH ASDIRECTED PRN PRN Reason: Keep Vein Open - Infant Interaction Infant Disposition, : to Nursery Support Person: - Recovery Exam Fundal Tone: Firm Fundal Level: 1 Fingerbreadths Below Umbilicus Fundal Placement: Midline Lochia Amount: Scant Lochia Color: Rubra/Red Perineum Description: Intact, Minimal Bruising/Swelling Episiotomy/Laceration: None Bladder Status: Nonpalpable, Indwelling Catheter in Place Urinary Elimination: Indwelling Catheter - Exam General: Alert, Oriented HEENT: Pupils Equal Neck: Supple Lungs: Clear to Auscultation, Normal Respiratory Effort Cardiovascular: Regular Rate, Regular Rhythm GI/Abdominal Exam: Normal Bowel Sounds, Soft, Non-Tender, No Organomegaly, No Distention, No Abnormal Bruit, No Mass, Pelvis Stable Extremities: Normal Inspection, Normal Range of Motion, Non-Tender, No Pedal Edema, Normal Capillary Refill Skin: Warm, Dry, Intact Wound/Incisions: Dressing Dry and Intact Neurological: No New Focal Deficit Psy/Mental Status: Alert, Normal Affect, Normal Mood - Problem List Review Problem List Initiated/Reviewed/Updated: Yes - My Orders Last 24 Hours: My Active Orders 11/25/20 Lunch Regular Diet [DIET] 11/25/20 12:29 Resuscitation Status Routine 11/25/20 12:39 HEP C VIRUS AB [REF] Stat 11/26/20 00:32 Acetaminophen/oxyCODONE [Percocet 325-5 MG] 1 tab PO Q4H PRN Acetaminophen/oxyCODONE [Percocet 325-5 MG] 2 tab PO Q4H PRN Ibuprofen [Motrin] 600 mg PO Q6H PRN Naloxone [Narcan] 0.1 mg IVPUSH SEECOMMENT PRN diphenhydrAMINE [Benadryl] 25 mg IVPUSH Q6H PRN ePHEDrine [ePHEDrine sulfate] 5 mg IVPUSH SEECOMMENT PRN 11/26/20 00:32 Communication Order [RC] PER UNIT ROUTINE Communication Order [RC] PER UNIT ROUTINE Communication Order [RC] PER UNIT ROUTINE Notify Provider Intake and Out [RC] ASDIRECTED Vital Signs [RC] Q1HR Assess Lochia [WOMSER] Per Unit Routine Assess Uterine Involution [WOMSER] Per Unit Routine Medication Administration Instruction [OM.PC] Routine 11/26/20 06:16 Ketorolac [Toradol] 30 mg IVPUSH Q6H PRN 11/26/20 Breakfast Regular Diet [DIET] 11/27/20 00:17 Urinary Catheter Removal [RC] Per Unit Routine - Assessment Assessment:: POD1 Doing well. No issues. Routine care - Plan Plan:: 30 year old here with SROM. Discussed if no cervical change after 2-3 hours would again recommend pitocin. Patient voices understanding.
[2020-11-26] MEDS: Simethicone 80 MG Tab.Chew PO PRN ×2 (13:07→19:05)
--- NOTE | 2020-11-27 08:59 | PCM.DCSUM1 ---
Discharge Summary - Hospital Course Free Text/Narrative:: Ericka is a 30-year-old 2 now para 1-0-1-1 -[place] female who is admitted on 11/25/2020 with spontaneous rupture membranes, early labor and progressive cervical dilation. She had been admitted on 11/24/2020 for induction of labor but after short period of time with left less than optimal progress and relative intolerance of labor she decided to go home. Reassuring contraction stress test indicated wellbeing at that time. Patient's request to go home was on her. She returned on 11/25/2020 with SROM with clear amniotic fluid and with contractions. She progressed approximately 3 to 4 cm and then began having recurrent late decelerations and less than reassuring heart tones. Because of that decision was made to proceed with section. Please see operative report for details. She delivered a viable 3560 g female infant with Apgars of 8 and 9 at 2324 hrs. on 11/25/2020. Preoperative diagnosis 39-week intrauterine , nonreassuring heart tones, and fibroids. Postoperatively pain is controlled with Duramorph through regional block. That was followed by ibuprofen and Percocet. She has done well postoperatively. Vital signs been stable. Patient is nursing. She is ambulating well, voiding without concerns, has minimal lochia and vital signs are stable. She is desiring discharge home. Diagnosis: Stroke: No - Discharge Data Discharge Date: 11/27/20 Discharge Disposition: Home, Self-Care 01 Condition: Good - Referral to Home Health Primary Care Physician: Rambo Santana MD - Discharge Diagnosis/Problem(s) (1) Non-reassuring electronic monitoring tracing SNOMED Code(s): 601264004 ICD Code: O36.8390 - MATERN CARE FOR ABNLT FETL HRT RATE OR RHYM, UNSP TRI, UNSP Status: Acute Current Visit: Yes (2) 39 weeks gestation of SNOMED Code(s): 54051048 ICD Code: Z3A.39 - 39 WEEKS GESTATION OF Status: Acute Current Visit: No (3) History of miscarriage SNOMED Code(s): 001591552 ICD Code: Z87.59 - PERSONAL HISTORY OF COMP OF PREG, CHLDBRTH AND THE PUERP Status: Acute Current Visit: No (4) Uterine fibroids affecting SNOMED Code(s): 04774595 ICD Code: O34.10 - MATERNAL CARE FOR BENIGN TUMOR OF CORPUS UTERI, UNSP TRI; D25.9 - LEIOMYOMA OF UTERUS, UNSPECIFIED Status: Acute Current Visit: No - Patient Summary/Data Operative Procedure(s) Performed: primary - Patient Instructions Diet: Regular Diet as Tolerated (Nursing diet with increased calories and calcium as recommended) Activity: As Tolerated (No intercourse or tampons until bleeding resolves no lifting greater than 15 pounds for the next 7 to 10 days. No driving a car x1 week.) Driving: Do Not Drive Showering/Bathing: May Shower Wound/Incision Care: Keep Operative Site/Wound Site Clean and Dry Notify Provider of: Fever, Increased Pain, Swelling and Redness, Drainage, Nausea and/or Vomiting - Discharge Plan Home Medications: Home Meds Vits #93/Iron Fum/FA [ Formula Tablet] 1 tab PO DAILY 11/24/20 [History] Acetaminophen/oxyCODONE [Percocet 325-5 MG] 2 tab PO Q4H PRN tablet 11/27/20 [Rx] Ibuprofen [Motrin] 600 mg PO Q6H PRN tablet 11/27/20 [Rx] Referrals: Rambo Santana MD [Primary Care Provider] - (Return to clinic[facility] weeks.) - Discharge Summary/Plan Comment DC Time >30 min.: No Total # of Minutes for Discharge Time: 15 Discharge Summary/Plan Comment: Discharge instructions: 1. Discharge home 2. Diet, activity and follow-up discussed with patient. Recommend nursing diet with increased calories and calcium. 3. Precautions given concern increased pain, bleeding, temperature, signs/symptoms of DVT/PE. 4. Medications per home medication was printed, discussed with and given to the patient. 5. Return to clinic-Dr. Santana[facility] in 2 weeks. Diagnosis: Term -delivered Condition: Good - Patient Data Vitals - Most Recent: Last Vital Signs Temp 37.0 C 11/27/20 03:53 Pulse 66 11/27/20 03:53 Resp 16 11/27/20 03:53 BP 123/73 11/27/20 03:53 Pulse Ox 97 11/27/20 03:53 Weight - Most Recent: 93.894 kg I&O - Last 24 hours: Intake & Output 11/26/20 11/27/20 11/27/20 22:59 06:59 14:59 Output Total 1100 700 Balance -1100 -700 Med Orders - Current: Current Medications Diphenhydramine HCl (Diphenhydramine 50 Mg/Ml Sdv) 25 mg IVPUSH Q6H PRN PRN Reason: Itching or Nausea Ephedrine Sulfate (Ephedrine 50 Mg/Ml Sdv) 5 mg IVPUSH SEECOMMENT PRN PRN Reason: Other Ibuprofen (Ibuprofen 600 Mg Tab) 600 mg PO Q6H PRN PRN Reason: mild pain or fever Last Admin: 11/27/20 01:02 Dose: 600 mg Documented by: Naloxone HCl (Naloxone 0.4 Mg/Ml Sdv) 0.1 mg IVPUSH SEECOMMENT PRN PRN Reason: Respiratory Depression Oxycodone/Acetaminophen (Acetaminophen/Oxycodone 325-5 Mg Tab) 1 tab PO Q4H PRN PRN Reason: Pain (moderate 4-6) Last Admin: 11/27/20 08:18 Dose: 1 tab Documented by: Oxycodone/Acetaminophen (Acetaminophen/Oxycodone 325-5 Mg Tab) 2 tab PO Q4H PRN PRN Reason: Pain (severe 7-10) Simethicone (Simethicone 80 Mg Tab.Chew) 160 mg PO Q4H PRN PRN Reason: gas pain Last Admin: 11/26/20 19:05 Dose: 160 mg Documented by: Discontinued Medications Bupivacaine HCl (Bupivacaine 0.5% 30 Ml Sdv) Confirm Administered Dose 30 ml .ROUTE .STK-MED ONE Stop: 11/25/20 22:51 Last Admin: 11/25/20 23:24 Dose: 15 ml Documented by: Bupivacaine HCl (Bupivacaine 0.25% 10 Ml Sdv) 10 ml .ROUTE .STK-MED ONE Stop: 11/25/20 14:01 Cefazolin Sodium (Cefazolin 1 Gm Vial) Confirm Administered Dose 2 gm .ROUTE .STK-MED ONE Stop: 11/25/20 22:48 Citric Acid/Sodium Citrate (Citric Acid/Sodium Citrate Solution 30 Ml Cup) Confirm Administered Dose 30 ml .ROUTE .STK-MED ONE Stop: 11/25/20 22:37 Last Admin: 11/25/20 22:48 Dose: 30 ml Documented by: Citric Acid/Sodium Citrate (Citric Acid/Sodium Citrate Solution 30 Ml Cup) 30 ml PO ONETIME ONE Stop: 11/25/20 22:31 Last Admin: 11/26/20 06:00 Dose: Not Given Documented by: Diphenhydramine HCl (Diphenhydramine 50 Mg/Ml Sdv) 25 mg IVPUSH Q6H PRN PRN Reason: pruritis Ephedrine Sulfate (Ephedrine 50 Mg/Ml Sdv) 5 mg IVPUSH ASDIRECTED PRN PRN Reason: Hypotension Last Admin: 11/25/20 21:27 Dose: 5 mg Documented by: Fentanyl (Fentanyl 100 Mcg/2 Ml Sdv) 100 mcg EPIDUR Q3H PRN PRN Reason: Pain Last Admin: 11/25/20 20:49 Dose: 100 mcg Documented by: Fentanyl/Bupivacaine HCl (Bupivacaine/Fentanyl/Ns 100 Ml Bag) 100 ml EPIDUR ASDIRECTED PRN PRN Reason: Pain Last Admin: 11/25/20 20:51 Dose: 100 ml Documented by: Oxytocin/Lactated Ringer's (Pitocin In Lr 10 Units/1,000 Ml) 10 unit in 1,000 mls @ 12 mls/hr IV TITRATE RONALD; Protocol Last Titration: 11/25/20 20:35 Dose: 0 munits/min, 0 mls/hr Documented by: Oxytocin/Lactated Ringer's (Pitocin In Lr 10 Units/1,000 Ml) 10 unit in 1,000 mls @ 500 mls/hr IV .CONTINUOUS RONALD Lactated Ringer's (Ringers, Lactated) 1,000 mls @ 100 mls/hr IV ASDIRECTED RONALD Last Admin: 11/25/20 22:20 Dose: 100 mls/hr Documented by: Dextrose/Lactated Ringer's (Dextrose 5%-Lactated Ringers) 1,000 mls @ 125 mls/hr IV ASDIRECTED RONALD Stop: 11/26/20 08:31 Last Admin: 11/26/20 01:20 Dose: 125 mls/hr Documented by: Ketorolac Tromethamine (Ketorolac 30 Mg/Ml Sdv) Confirm Administered Dose 30 mg .ROUTE .STK-MED ONE Stop: 11/25/20 23:34 Ketorolac Tromethamine (Ketorolac 30 Mg/Ml Sdv) 30 mg IVPUSH Q6H PRN PRN Reason: Pain Last Admin: 11/26/20 19:05 Dose: 30 mg Documented by: Lidocaine/Epinephrine (Lidocaine 2% With Epinephrine 1:200,000 20 Ml Sdv) Confirm Administered Dose 20 ml .ROUTE .STK-MED ONE Stop: 11/25/20 22:51 Metoclopramide HCl (Metoclopramide 10 Mg/2 Ml Sdv) Confirm Administered Dose 10 mg .ROUTE .STK-MED ONE Stop: 11/25/20 22:37 Last Admin: 11/25/20 22:51 Dose: 10 mg Documented by: Metoclopramide HCl (Metoclopramide 10 Mg/2 Ml Sdv) 10 mg IVPUSH ONETIME ONE Stop: 11/25/20 22:31 Last Admin: 11/26/20 06:01 Dose: Not Given Documented by: Morphine Sulfate (Morphine Pf 10 Mg/10 Ml Sdv) Confirm Administered Dose 10 mg .ROUTE .STK-MED ONE Stop: 11/25/20 22:48 Nalbuphine HCl (Nalbuphine 10 Mg/1 Ml Vial) 10 mg IVPUSH Q2H PRN PRN Reason: Pain Ondansetron HCl (Ondansetron 4 Mg/2 Ml Sdv) 4 mg IVPUSH Q4H PRN PRN Reason: Nausea/Vomiting Phenylephrine HCl (Phenylephrine 1% 10 Mg/Ml Sdv) Confirm Administered Dose 10 mg .ROUTE .STK-MED ONE Stop: 11/25/20 22:48 Sodium Chloride (Sodium Chloride 0.9% 10 Ml Syringe) 10 ml FLUSH ASDIRECTED PRN PRN Reason: Keep Vein Open
--- NOTE | 2020-11-27 10:55 | PCM48HPAN ---
Post Anesthesia Note - EVALUATION WITHIN 48HRS OF ANESTHETIC Vital Signs in Normal Range: Yes Patient Participated in Evaluation: Yes Respiratory Function Stable: Yes Airway Patent: Yes Cardiovascular Function Stable: Yes Hydration Status Stable: Yes Pain Control Satisfactory: Yes Nausea and Vomiting Control Satisfactory: Yes Mental Status Recovered: Yes Vital Signs: Last Vital Signs Temp 99.0 F 11/27/20 08:19 Pulse 81 11/27/20 08:19 Resp 16 11/27/20 08:19 BP 115/66 11/27/20 08:19 Pulse Ox 98 11/27/20 08:19
== END 2020-11-27 15:58 | disposition home or self-care (01) | DRG 540 ==
LOC: JD.OB 11:28 → JD.OBCHECK 11:28 → UNDOADMOB 12:29 → JD.OB 12:29 → INTOOBSV 23:24 → OBSVTOIN 23:24 → JD.OB 23:24 → UNDODISIN 11-27 15:58
PROVIDERS: ADMIT Obstetrics & Gynecology; ATTEND Obstetrics & Gynecology
PROC: 10D00Z1 Extraction of Products of Conception, Low, Open Approach (ICD-10-PCS; principal; 2020-11-25)
DX: O48.0 Post-term pregnancy (principal); O76 Abnormality in fetal heart rate and rhythm complicating labor and delivery; Z37.0 Single live birth; O34.13 Maternal care for benign tumor of corpus uteri, third trimester; D25.9 Leiomyoma of uterus, unspecified; Z3A.40 40 weeks gestation of pregnancy
CPT/HCPCS: 01967; 01968; 36410; 36415; 51702; 59025; 85025; 86803; A9270-GY; J0690; J1885; J2270; J2370; J2590; J2765; J3010; J3490; J7120; J7121